=== PATIENT | female | born 1985 | race Caucasian/White ===

== ENCOUNTER 2017-03-26 18:09 | Emergency (ER) | payer SELFPAY ==
[2017-03-26 18:33] VITALS: BP 123/75
== END 2017-03-26 18:47 | disposition left against medical advice (07) ==
LOC: UCEAST 18:09
DX: H92.09 Otalgia, unspecified ear (principal); Z53.21 Procedure and treatment not carried out due to patient leaving prior to being seen by health care provider

== ENCOUNTER 2017-03-27 16:45 | Emergency (ER) | payer OTHER ==
[2017-03-27 17:16] VITALS: BP 120/62
--- NOTE | 2017-03-27 17:25 | UC ---
Ear Complaint HPI - HPI Summary HPI Summary: Pt presents with daughter. She tells me that for the past 3 days she has had R> L ear pain along with sinus congestion/pain/pressure. She has not tried anything OTC. Admits that she does have a lot of "earwax build up" and uses q tips often. She denies fever, chills, cough, ST, SOB, chest pain, abdominal pain , N/V/D/C - History of Current Complaint Chief Complaint: UCEar Stated Complaint: EAR PAIN Time Seen by Provider: 03/27/17 17:21 Hx Obtained From: Patient Hx Last Menstrual Period: 03/27/17 ?: No Onset/Duration: Gradual Onset Severity Initially: Mild Severity Currently: Moderate Pain Intensity: 5 Pain Scale Used: 0-10 Numeric - Allergies/Home Medications Allergies/Adverse Reactions: Allergies Allergy/AdvReac Type Severity Reaction Status Date / Time No Known Allergies Allergy Verified 03/27/17 17:16 PMH/Surg Hx/FS Hx/Imm Hx Previously Healthy: Yes - Surgical History Surgical History: Yes Surgery Procedure, Year, and Place: ESSURE PLACEMENT PLACEMENT-08/22/2010. D&C X 2-MISCARRIAGES- - BLOOD TRANSFUSIONS WITH D&C. Sep 25 2012 gallstone surgery. GALL BLADDER REMOVAL - Social History Alcohol Use: Rare Substance Use Type: None Smoking Status (MU): Former Smoker When Did the Patient Quit Smoking/Using Tobacco: June 2014 - Immunization History Most Recent Influenza Vaccination: none Most Recent Tetanus Shot: > 10 years Review of Systems Constitutional: Negative Skin: Negative Eyes: Negative ENT: Ear Ache Respiratory: Negative Cardiovascular: Negative Gastrointestinal: Negative All Other Systems Reviewed And Are Negative: Yes Physical Exam Triage Information Reviewed: Yes Appearance: Well-Appearing, Well-Nourished Vital Signs: Initial Vital Signs Temp 98.0 F 03/27/17 17:13 Pulse 87 03/27/17 17:13 Resp 16 03/27/17 17:13 BP 120/62 03/27/17 17:13 Pulse Ox 100 03/27/17 17:13 Vital Signs Reviewed: Yes Eyes: Positive: Conjunctiva Clear. Negative: Conjunctiva Inflamed, Discharge ENT: Positive: Hearing grossly normal, Pharynx normal, Nasal congestion, Nasal drainage, Sinus tenderness, Uvula midline, Other - B/L cerumen impaction. No visualization of the TMs. After cerumen disimpaction: TMs normal without bulging , dullness, or erythema.. Negative: Pharyngeal erythema, Tonsillar swelling, Tonsillar exudate Neck: Positive: Supple, Nontender, No Lymphadenopathy Respiratory: Positive: Chest non-tender, Lungs clear, Normal breath sounds, No respiratory distress, No accessory muscle use Cardiovascular: Positive: RRR, No Murmur, Pulses Normal Neurological: Positive: Alert Psychological: Positive: Age Appropriate Behavior Skin: Negative: rashes Ear Complaint Course/Dx - Course Course Of Treatment: sinusitis. B/l cerumen impaction. Cerumen irrigation today with great results. Pt's ear pain felt better. TMs visualized and normal. Rx for amoxicillin for sinusitis. - Differential Dx/Diagnosis Differential Diagnosis/HQI/PQRI: Cerumen Impaction, Mastoiditis, Otitis Externa , Otitis Media, Perforated TM, URI Provider Diagnoses: Cerumen impaction. Sinusitis Discharge - Discharge Plan Condition: Stable Disposition: HOME Prescriptions: Amoxicillin PO (*) [Amoxicillin 500 MG CAP*] 500 mg PO Q12H #14 cap Patient Education Materials: Sinusitis (ED) Referrals: Paige Stanton MD [Primary Care Provider] - Additional Instructions: If you develop a fever, SOB, chest pain, new or worsening symptoms - please call your PCP or go to the ED.
== END 2017-03-27 18:02 | disposition home or self-care (01) ==
LOC: UCEAST 16:45
DX: H61.23 Impacted cerumen, bilateral (principal); J32.9 Chronic sinusitis, unspecified; Z90.49 Acquired absence of other specified parts of digestive tract; Z87.891 Personal history of nicotine dependence
CPT/HCPCS: 99213; G0463

== ENCOUNTER 2018-01-11 14:29 | Emergency (ER) | payer OTHER ==
[2018-01-11 14:40] VITALS: BP 122/85
--- NOTE | 2018-01-11 15:07 | UC ---
Back Pain HPI - HPI Summary HPI Summary: 32 y/o female presents to the urgent care c/o lower back pain for the past 3 days. Pt reports pain is sharp w/ movement 6/10, radiating to the Rt hip and Rt knee at times. Pt denies any injury or Hx of back pain, Pt has taken Tylenol PO to alleviate symptoms w/o any improvement. Last dose taking around 1000AM today. Pt denies saddle anesthesia, urinary or fecal incontinence, urinary symptoms, fever, numbness or tingling over the lower legs, SOB, calf pain, chest pain, abdominal pain, N/V/D. LMP: 12/11/2017 - History of Current Complaint Chief Complaint: UCBackPain Stated Complaint: BACK PAIN Time Seen by Provider: 01/11/18 15:06 Hx Obtained From: Patient Hx Last Menstrual Period: one month ago ?: No Onset/Duration: Gradual Onset, Lasting Days - 3 days, Still Present, Worse Since - today Timing: Intermittent Severity Initially: Mild Severity Currently: Moderate Pain Intensity: 6 Pain Scale Used: 0-10 Numeric Back Pain: Is Discrete @ - lower back, Radiates To - hip and Rt knee Character: Sharp Aggravating Factor(s): Movement, Lifting, Bending Alleviating Factor(s): Rest Associated Signs And Symptoms: Positive: Negative. Negative: Fever, Numbness, Tingling, Abdominal Pain, Flank Pain, Bladder Incontinence, Bowel Incontinence, Weight Loss, Pain with Weight Bearing - Risk Factors AAA Risk Factors: Negative TAD Risk Factors: Negative Cauda Equina Risk Factors: Negative Epidural Abscess Risk Factors: Negative - Allergies/Home Medications Allergies/Adverse Reactions: Allergies Allergy/AdvReac Type Severity Reaction Status Date / Time No Known Allergies Allergy Verified 01/11/18 14:40 PMH/Surg Hx/FS Hx/Imm Hx Previously Healthy: Yes Respiratory History: Asthma - controlled - Surgical History Surgical History: Yes Surgery Procedure, Year, and Place: ESSURE PLACEMENT PLACEMENT-08/22/2010. D&C X 2-MISCARRIAGES- - BLOOD TRANSFUSIONS WITH D&C. Sep 25 2012 gallstone surgery. GALL BLADDER REMOVAL - Family History Known Family History: Positive: None - Pt deneis PMHX - Social History Occupation: Employed Full-time Lives: With Family Alcohol Use: Rare Substance Use Type: None Smoking Status (MU): Former Smoker When Did the Patient Quit Smoking/Using Tobacco: June 2014 - Immunization History Most Recent Influenza Vaccination: none Most Recent Tetanus Shot: > 10 years Review of Systems Constitutional: Negative Skin: Negative Eyes: Negative ENT: Negative Respiratory: Negative Cardiovascular: Negative Gastrointestinal: Negative Genitourinary: Negative Motor: Negative Neurovascular: Negative Musculoskeletal: Decreased ROM - lower back, Other: - lower back pain radiating to the Rt hip and Rt knee Neurological: Negative Psychological: Negative Is Patient Immunocompromised?: No All Other Systems Reviewed And Are Negative: Yes Physical Exam - Summary Physical Exam Summary: Vital Signs Reviewed: Yes Appearance: Well-Appearing, Well-Nourished, obese female sitting in the examining table w/o any apparent distress. Eyes: Positive: Conjunctiva Clear - PERRLA, EOMI. ENT: Positive: Normal ENT inspection, Hearing grossly normal, Pharynx normal, TMs normal, Uvula midline Neck: Positive: Supple, Nontender, No Lymphadenopathy Respiratory: Positive: Chest non-tender, Lungs clear, Normal breath sounds, No respiratory distress Cardiovascular: Positive: RRR, No Murmur, Pulses Normal, Brisk Capillary Refill Abdomen Description: Positive: Nontender, No Organomegaly, Soft. Negative: CVA Tenderness (R), CVA Tenderness (L) Bowel Sounds: Positive: Present Musculoskeletal: Positive: Strength Intact, BACK: Patient walked into the urgent care room with symmetric ambulation, No signs of limping, antalgic, able to bear weight. No signs of trauma, No masses palpated. Point tenderness at the level of L5-S1, No CVAT, no flank ecchymosis . No sacroiliac notch tenderness, No saddle anesthesia.ROM: limited due to pain, Straight Leg Raise: negative. Patellar reflexes: brisk, symmetric Muscle strength lower extremities. Dorsiflexion/ plantar flexion of ankles. Heel/ toe walk. Lower extremities: Femoral, popliteal, posterior tibial, and dorsalis pedis pulses WNL. Pt refuse rectal exam Neurological: Positive: Alert, Muscle Tone Normal Psychological Exam: Normal Skin Exam: Normal Triage Information Reviewed: Yes Vital Signs: Initial Vital Signs Temp 98.9 F 01/11/18 14:38 Pulse 87 01/11/18 14:38 Resp 12 01/11/18 14:38 BP 122/85 01/11/18 14:38 Pulse Ox 99 01/11/18 14:38 Back Pain Course/Dx - Course Course Of Treatment: 32 y/o female presents to the urgent care c/o lower back pain for the past 3 days. Pt reports pain is sharp w/ movement 6/10, radiating to the Rt hip and Rt knee at times. Pt denies any injury or Hx of back pain, Pt has taken Tylenol PO to alleviate symptoms w/o any improvement. Last dose taking around 1000AM today. Pt denies saddle anesthesia, urinary or fecal incontinence, urinary symptoms, fever, numbness or tingling over the lower legs , SOB, calf pain, chest pain, abdominal pain, N/V/D. LMP: 12/11/2017. Hx obtained. PE: Point tenderness at the level of the L5-S1 and left paraspinal muscle spasm at the same level on examination. test ordered: negative. UA: 3+ blood, 1+ leukoesteraces,+protein. Urine culture sent to lab to r/o any abdnormality. Pt will be notified. Lumbosacral X-ray ordered, Impression: No acute osseous injury observed. Pt decline medication fo pain at the clinic. Pt Rx Ibuprofen PO, flexeril PO and Bactrim PO as directed below. Patient was instructed to the f/u [facility] orthopedic from [facility] in 1 week if symptoms do not improve or worsen. Patient understands and agrees. Patient is able to ambulate freely w/o aid or limp. Plan of care was discussed with the patient and patient understands and agrees. All questions were answered at patient satisfaction. Pt left clinic hemodynamically stable. - Differential Dx/Diagnosis Differential Diagnosis/HQI/PQRI: Fracture, Herniated Disc, Renal Colic, Strain, Sprain, Other - UTI Provider Diagnoses: 1- Acute lower strain. 2- UTI. 3- Muscle spasm Discharge - Sign-Out/Discharge Documenting (check all that apply): Patient Departure - D/C home All imaging exams completed and their final reports reviewed: Yes - Discharge Plan Condition: Stable Disposition: HOME Prescriptions: Cyclobenzaprine TAB* [Flexeril 10 MG TAB*] 10 mg PO TID PRN #21 tab PRN Reason: Spasms - Back Ibuprofen TAB* [Motrin TAB* 800 MG] 800 mg PO Q6H PRN #30 tab PRN Reason: Pain Sulfamethox/Trimethoprim DS* [Bactrim DS 800/160 TAB*] 1 tab PO BID #6 tab Patient Education Materials: Urinary Tract Infection in Women (ED), Low Back Strain (ED) Referrals: Paige Stanton MD [Primary Care Provider] - 3 Days [facility] [Provider Group] - 1 Week Additional Instructions: 1- Please take Ibuprofen PO as directed after meals for pain. 2- Take Flexeril PO as directed for muscle spasm. Please do not drive while taking the medication. 3- Wear a back support. Avoid strenuous exercise of heavy lifting. 4- Take Bactrim PO as directed to alleviate UTI. Increase increase fluid intake. drink cranberry juice. 5-Urine sent for culture if any abnormality, you will be notified for further treatment. 6- Please follow up with Orthopedic Dr from [facility] or your PCP in 1 week if not improvement of symptoms, for further management. - Billing Disposition and Condition Condition: STABLE Disposition: Home
--- NOTE | 2018-01-11 16:19 | RAD ---
INDICATION: Low back pain. COMPARISON: There are no relevant prior studies available for comparison. TECHNIQUE: 5 views of the lumbar spine were obtained including lateral, oblique, AP and a coned-down lateral view of the lumbar sacral junction. FINDINGS: The vertebra are in normal alignment. No fracture is seen. Disc spaces appear maintained. IMPRESSION: NEGATIVE EXAM.
--- NOTE | 2018-01-13 19:43 | UC ---
- Progress Note Progress Note: + E. Coli pt on Bactrim await sensitivity no change wallace 01/13/18 Discharge - Sign-Out/Discharge Documenting (check all that apply): Post-Discharge Follow Up All imaging exams completed and their final reports reviewed: Yes - Discharge Plan Condition: Stable Disposition: HOME Prescriptions: Cyclobenzaprine TAB* [Flexeril 10 MG TAB*] 10 mg PO TID PRN #21 tab PRN Reason: Spasms - Back Ibuprofen TAB* [Motrin TAB* 800 MG] 800 mg PO Q6H PRN #30 tab PRN Reason: Pain Sulfamethox/Trimethoprim DS* [Bactrim DS 800/160 TAB*] 1 tab PO BID #6 tab Patient Education Materials: Urinary Tract Infection in Women (ED), Low Back Strain (ED) Referrals: [facility] [Provider Group] - 1 Week Paige Stanton MD [Primary Care Provider] - 3 Days Additional Instructions: 1- Please take Ibuprofen PO as directed after meals for pain. 2- Take Flexeril PO as directed for muscle spasm. Please do not drive while taking the medication. 3- Wear a back support. Avoid strenuous exercise of heavy lifting. 4- Take Bactrim PO as directed to alleviate UTI. Increase increase fluid intake. drink cranberry juice. 5-Urine sent for culture if any abnormality, you will be notified for further treatment. 6- Please follow up with Orthopedic Dr from [facility] or your PCP in 1 week if not improvement of symptoms, for further management. - Billing Disposition and Condition Condition: STABLE Disposition: Home
== END 2018-01-11 16:35 | disposition home or self-care (01) ==
LOC: UCEAST 14:29
DX: S39.012A Strain of muscle, fascia and tendon of lower back, initial encounter (principal); X58.XXXA Exposure to other specified factors, initial encounter; Y93.9 Activity, unspecified; Y92.9 Unspecified place or not applicable; M62.830 Muscle spasm of back; N39.0 Urinary tract infection, site not specified; B96.20 Unspecified Escherichia coli [E. coli] as the cause of diseases classified elsewhere; Z32.02 Encounter for pregnancy test, result negative; Z87.891 Personal history of nicotine dependence
CPT/HCPCS: 72110; 81003; 84702; 87077; 87086; 87186; 99212; G0463

== ENCOUNTER 2018-01-24 19:15 | Emergency (ER) | payer OTHER ==
[2018-01-24 19:55] VITALS: BP 148/97
[2018-01-24] MEDS ORDERED: Cephalexin CAP* 500 MG PO ONE (20:14)
--- NOTE | 2018-01-24 20:15 | UC ---
Complaint Female HPI - HPI Summary HPI Summary: The patient is a 32-year-old female with a 2 day history of dysuria urgency and frequency. Seen about 2 weeks ago she had a 3 day course of Septra double strength. She did not feel completely better at the end of her 3 day course of antibiotics. She has had no fever or chills. Denies any vaginal discharge or itch. He has no nausea vomiting or diarrhea. She is just finishing her period. - History Of Current Complaint Chief Complaint: UCGU Stated Complaint: BURNING URINATION Time Seen by Provider: 01/24/18 20:03 Hx Obtained From: Patient Hx Last Menstrual Period: 01/17/18 Onset/Duration: Gradual Onset, Lasting Days Timing: Constant Severity Initially: Mild Severity Currently: Mild Pain Intensity: 4 Pain Scale Used: 0-10 Numeric Character: Burning Aggravating Factor(s): Urination - Allergies/Home Medications Allergies/Adverse Reactions: Allergies Allergy/AdvReac Type Severity Reaction Status Date / Time No Known Allergies Allergy Verified 01/24/18 19:55 PMH/Surg Hx/FS Hx/Imm Hx Previously Healthy: Yes - Surgical History Surgical History: Yes Surgery Procedure, Year, and Place: ESSURE PLACEMENT PLACEMENT-08/22/2010. D&C X 2-MISCARRIAGES- - BLOOD TRANSFUSIONS WITH D&C. Sep 25 2012 gallstone surgery. GALL BLADDER REMOVAL - Family History Known Family History: Positive: Hypertension - Social History Alcohol Use: Rare Substance Use Type: None Smoking Status (MU): Former Smoker When Did the Patient Quit Smoking/Using Tobacco: June 2014 - Immunization History Most Recent Influenza Vaccination: none Most Recent Tetanus Shot: > 10 years Review of Systems Constitutional: Negative Skin: Negative Eyes: Negative ENT: Negative Respiratory: Negative Cardiovascular: Negative Gastrointestinal: Negative Genitourinary: Dysuria, Frequency, Urgency Motor: Negative Neurovascular: Negative Musculoskeletal: Negative Neurological: Negative Psychological: Negative Is Patient Immunocompromised?: No All Other Systems Reviewed And Are Negative: Yes Physical Exam Triage Information Reviewed: Yes Appearance: Well-Appearing, No Pain Distress, Well-Nourished Vital Signs: Initial Vital Signs Temp 98.6 F 01/24/18 19:53 Pulse 96 01/24/18 19:53 Resp 18 01/24/18 19:53 BP 148/97 01/24/18 19:53 Pulse Ox 98 09/28/18 19:53 Eyes: Positive: Conjunctiva Clear ENT: Positive: Hearing grossly normal. Negative: Nasal congestion, Nasal drainage, Trismus, Muffled voice, Hoarse voice Neck: Positive: Nontender, No Lymphadenopathy Respiratory: Positive: Lungs clear, Normal breath sounds, No respiratory distress, No accessory muscle use Cardiovascular: Positive: RRR, No Murmur Musculoskeletal: Positive: ROM Intact, No Edema Neurological: Positive: Alert Psychological Exam: Normal Skin Exam: Normal Diagnostics - Laboratory Diagnostic Studies Completed/Ordered: UA trace leuks, + RBC Complaint Female Dx - Differential Dx/Diagnosis Provider Diagnoses: dysuria. possible UTI Discharge - Sign-Out/Discharge Documenting (check all that apply): Patient Departure All imaging exams completed and their final reports reviewed: No Studies - Discharge Plan Condition: Stable Disposition: HOME Patient Education Materials: Dysuria (ED) Referrals: Paige Stanton MD [Primary Care Provider] - 3 Days (if not better) Additional Instructions: a urine culture is pending recheck for new or worsening symptoms - Billing Disposition and Condition Condition: STABLE Disposition: Home
== END 2018-01-24 20:45 | disposition home or self-care (01) ==
LOC: UCEAST 19:15
DX: R30.0 Dysuria (principal); Z87.891 Personal history of nicotine dependence
CPT/HCPCS: 81003; 87086; 99212; A9270-GY; G0463

== ENCOUNTER 2018-01-27 13:37 | Emergency (ER) | payer OTHER ==
--- NOTE | 2018-01-27 15:17 | UC ---
Complaint Female HPI - HPI Summary HPI Summary: 32 y/o female presents to the urgent care pt was here on saturday for uti symptoms. pt was given an abx for a longer period of time. pt states she had a uti prior to that uti and currently the pain is more and feels as though her uti is worse. pt states she is having difficulty standing d/t lower back pain and her back is locking. - History Of Current Complaint Chief Complaint: UCGU Stated Complaint: BACK PAIN, AND FREQUENT URINATION Time Seen by Provider: 01/27/18 15:14 Hx Obtained From: Patient Hx Last Menstrual Period: 01/16/18 Onset/Duration: Gradual Onset Pain Intensity: 6 - Allergies/Home Medications Allergies/Adverse Reactions: Allergies Allergy/AdvReac Type Severity Reaction Status Date / Time No Known Allergies Allergy Verified 01/27/18 14:14 Home Medications: Home Medications Acetaminophen [Acetaminophen Extra Strength] 1,000 mg PO 01/27/18 [History] PMH/Surg Hx/FS Hx/Imm Hx - Surgical History Surgical History: Yes Surgery Procedure, Year, and Place: ESSURE PLACEMENT PLACEMENT-08/22/2010. D&C X 2-MISCARRIAGES- - BLOOD TRANSFUSIONS WITH D&C. Sep 25 2012 gallstone surgery. GALL BLADDER REMOVAL - Family History Known Family History: Positive: None - Pt deneis PMHX, Hypertension - Social History Alcohol Use: Occasionally Substance Use Type: None Smoking Status (MU): Former Smoker When Did the Patient Quit Smoking/Using Tobacco: June 2014 - Immunization History Most Recent Influenza Vaccination: none Most Recent Tetanus Shot: > 10 years Physical Exam Vital Signs: Initial Vital Signs Temp 98.5 F 01/27/18 14:09 Pulse 85 01/27/18 14:09 Resp 18 01/27/18 14:09 BP 130/82 01/27/18 14:09 Pulse Ox 99 01/27/18 14:09 Complaint Female Dx - Differential Dx/Diagnosis Differential Diagnosis/HQI/PQRI: Ovarian Cyst, Ovarian Torsion, Pelvic Inflammatory Disease, Renal Colic, Urinary Tract Infection Provider Diagnoses: 1- Acute lower back pain. 2- Muscle spasm. 3- Dysuria Discharge - Sign-Out/Discharge Documenting (check all that apply): Patient Departure - D/C home All imaging exams completed and their final reports reviewed: No Studies - Discharge Plan Condition: Stable Disposition: HOME-RECOMMEND TO ED Prescriptions: Methocarbamol TAB* [Robaxin 500 MG TAB*] 750 mg PO TID PRN #12 tab PRN Reason: Spasms - Muscle Phenazopyridine TAB* [Pyridium 100 mg TAB*] 100 mg PO TID #6 tab Patient Education Materials: Low Back Strain (ED), Dysuria (ED), Muscle Spasm ( ED) Referrals: Paige Stanton MD [Primary Care Provider] - 2 Days Yassine Novak MD [Medical Doctor] - 1 Week Additional Instructions: 1- Please continue taking Ibuprofen PO or Tylenol PO as directed after meals for pain. 2- Take Robaxin PO as directed for muscle spasm. Please do not drive while taking the medication. 3- Wear a back support. Avoid strenuous exercise of heavy lifting. 4- Since you declined Pelvic exam and at this moment we don't have ultrasound to r/o ovarian cyst, I hihgly recommend you to go to the ER for further management since you have Hx of ovarian cyst in the past. 4- Please follow up with Orthopedic Dr Novak or your PCP in 1 week if not improvement of symptoms, for further management. - Billing Disposition and Condition Condition: STABLE Disposition: Home-Recommend to ED
[2018-01-27 16:12] VITALS: BP 128/74
== END 2018-01-27 16:13 | disposition home health service (06) ==
LOC: UCEAST 13:37
DX: M54.5 Low back pain (principal); M62.830 Muscle spasm of back; R30.0 Dysuria; Z87.440 Personal history of urinary (tract) infections; Z87.891 Personal history of nicotine dependence
CPT/HCPCS: 81003; 84702; 87086; 99212; G0463

== ENCOUNTER 2018-06-22 14:39 | Emergency (ER) | payer OTHER ==
[2018-06-22 14:55] VITALS: BP 129/75
--- NOTE | 2018-06-22 15:03 | UC ---
FLU HPI - HPI Summary HPI Summary: started 2 days ago with cough, fever, chills. thought she had a cold, but worse today. OTC cold meds not helping did not get flu vacc [id number] - History of Current Complaint Chief Complaint: UCRespiratory Stated Complaint: COUGH,CHILLS Time Seen by Provider: 06/22/18 15:00 Hx Obtained From: Patient Hx Last Menstrual Period: 06/17/2018 ?: No Onset/Duration: Sudden Onset - 2 days ago Severity Currently: Moderate Pain Intensity: 4 Associated Signs & Symptoms: Positive: Fever, Cough Related Hx: Possible Flu/Infectious Exposure - Allergy/Home Medications Allergies/Adverse Reactions: Allergies Allergy/AdvReac Type Severity Reaction Status Date / Time No Known Allergies Allergy Verified 04/25/18 12:58 PMH/Surg Hx/FS Hx/Imm Hx Previously Healthy: Yes - Surgical History Surgical History: Yes Surgery Procedure, Year, and Place: ESSURE PLACEMENT PLACEMENT-08/22/2010. D&C X 2-MISCARRIAGES- - BLOOD TRANSFUSIONS WITH D&C. Sep 25 2012 gallstone surgery. GALL BLADDER REMOVAL - Family History Known Family History: Positive: None - Pt deneis PMHX, Hypertension, Diabetes - Social History Occupation: Employed Full-time - [employer] Lives: With Family Alcohol Use: Occasionally Substance Use Type: None Smoking Status (MU): Former Smoker When Did the Patient Quit Smoking/Using Tobacco: June 2014 - Immunization History Most Recent Influenza Vaccination: none Most Recent Tetanus Shot: > 10 years Review of Systems All Other Systems Reviewed And Are Negative: Yes Constitutional: Positive: Fever, Chills, Fatigue Skin: Positive: Negative Respiratory: Positive: Cough Cardiovascular: Positive: Negative Musculoskeletal: Positive: Negative Neurological: Positive: Negative Psychological: Positive: Negative Is Patient Immunocompromised?: No Physical Exam Triage Information Reviewed: Yes Appearance: No Pain Distress, Ill-Appearing - curled on table wearing coat, Obese Vital Signs: Initial Vital Signs Temp 99.9 F 06/22/18 14:50 Pulse 90 06/22/18 14:50 Resp 18 06/22/18 14:50 BP 129/75 06/22/18 14:50 Pulse Ox 100 06/22/18 14:50 Vital Signs Reviewed: Yes Eyes: Positive: Conjunctiva Clear ENT: Positive: Pharynx normal, Nasal congestion Neck: Positive: Nontender Respiratory: Positive: Lungs clear Cardiovascular Exam: Normal Cardiovascular: Positive: RRR Musculoskeletal Exam: Normal Neurological Exam: Normal Psychological Exam: Normal Skin Exam: Normal Flu Course/Dx - Differential Dx/Diagnosis Differential Diagnosis/HQI/PQRI: Influenza, Upper Respiratory Infection Provider Diagnosis: Influenza A Discharge - Sign-Out/Discharge Documenting (check all that apply): Patient Departure All imaging exams completed and their final reports reviewed: No Studies - Discharge Plan Condition: Stable Disposition: HOME Prescriptions: Oseltamivir CAP* [Tamiflu CAP*] 75 mg PO BID #10 cap Patient Education Materials: Influenza (ED) Forms: *Work Release Referrals: Paige Stanton MD [Primary Care Provider] - 3 Days (if no better) Additional Instructions: drink plenty of fluids and rest start Tamiflu today no work for 48hours use over the counter flu symptom relief medication as directed - Billing Disposition and Condition Condition: STABLE Disposition: Home
[2018-06-22 15:13] LABS: Influenza A Molecular POSITIVE (Negative)
== END 2018-06-22 15:35 | disposition home or self-care (01) ==
LOC: UCEAST 14:39
DX: J10.1 Influenza due to other identified influenza virus with other respiratory manifestations (principal); Z87.891 Personal history of nicotine dependence
CPT/HCPCS: 99212; G0463

== ENCOUNTER 2019-04-06 17:49 | Emergency (ER) | payer SELFPAY ==
[2019-04-06 18:05] VITALS: BP 130/81
--- NOTE | 2019-04-06 18:42 | UC ---
Hand/Wrist HPI - HPI Summary HPI Summary: 33-year-old woman comes in with right hand and wrist pain. It's been going on for several weeks. Pain is worse with activity. Pain primarily is in the right palm but also into the right first second and third fingers. No known specific trauma. Patient reports that certain movements make the pain worse. No complaint of any weakness. - History Of Current Complaint Chief Complaint: UCUpperExtremity Stated Complaint: HAND PAIN Time Seen by Provider: 04/06/19 18:26 Hx Last Menstrual Period: two weeks ago Pain Intensity: 8 - Allergies/Home Medications Allergies/Adverse Reactions: Allergies Allergy/AdvReac Type Severity Reaction Status Date / Time No Known Allergies Allergy Verified 04/06/19 18:05 Home Medications: Home Medications NK [No Home Medications Reported] 04/06/19 [History Confirmed 04/06/19] PMH/Surg Hx/FS Hx/Imm Hx Previously Healthy: Yes - Surgical History Surgical History: Yes Surgery Procedure, Year, and Place: ESSURE PLACEMENT PLACEMENT-08/22/2010. D&C X 2-MISCARRIAGES- - BLOOD TRANSFUSIONS WITH D&C. Sep 25 2012 gallstone surgery. GALL BLADDER REMOVAL - Family History Known Family History: Positive: None - Pt deneis PMHX, Hypertension, Diabetes - Social History Alcohol Use: Occasionally Substance Use Type: None Smoking Status (MU): Former Smoker When Did the Patient Quit Smoking/Using Tobacco: June 2014 Household Exposure Type: Cigarettes - Immunization History Most Recent Influenza Vaccination: none Most Recent Tetanus Shot: > 10 years Review of Systems All Other Systems Reviewed And Are Negative: Yes Constitutional: Positive: Negative Skin: Positive: Negative Eyes: Positive: Negative ENT: Positive: Negative Respiratory: Positive: Negative Cardiovascular: Positive: Negative Gastrointestinal: Positive: Negative Motor: Positive: Other - SEE HPI Neurovascular: Positive: Negative Musculoskeletal: Positive: Other: - SEE HPI Neurological: Positive: Negative Psychological: Positive: Negative Is Patient Immunocompromised?: No Physical Exam Triage Information Reviewed: Yes Appearance: Well-Appearing, No Pain Distress, Well-Nourished Vital Signs: Initial Vital Signs Temp 99.1 F 04/06/19 18:00 Pulse 81 04/06/19 18:00 Resp 18 04/06/19 18:00 BP 130/81 04/06/19 18:00 Pulse Ox 98 12/09/19 18:00 Vital Signs Reviewed: Yes Eye Exam: Normal Eyes: Positive: Conjunctiva Clear Neck: Positive: Supple Respiratory: Positive: No respiratory distress Musculoskeletal: Positive: Strength Intact, ROM Intact, Other: - Right elbow wrist and hand and fingers all have full range of motion full-strength. Positive Tinel's on the right side. Normal capillary refill normal sensation normal radial pulse. Neurological: Positive: Alert Psychological: Positive: Age Appropriate Behavior Skin Exam: Normal Hand/Wrist Course/Dx - Course Course Of Treatment: Examination is consistent with a right carpal tunnel symptoms. Patient continues eyes anti-inflammatories. Patient was placed in a cock-up splint by nursing patient Norvasc intact after placement of cock-up splint. If not completely improved will follow-up with sports medicine. - Differential Dx/Diagnosis Provider Diagnosis: Right hand pain, Right wrist pain, Right carpal tunnel syndrome Discharge ED - Sign-Out/Discharge Documenting (check all that apply): Patient Departure All imaging exams completed and their final reports reviewed: Yes - Discharge Plan Condition: Stable Disposition: HOME Patient Education Materials: Wrist Sprain (ED) Referrals: Paige Stanton MD [Primary Care Provider] - [facility] [Provider Group] Additional Instructions: FOLLOW UP WITH SPORTS MEDICINE IF YOUR RIGHT HAND AND WRIST PAIN WITH CARPAL TUNNEL SYMPTOMS IS NOT COMPLETELY IMPROVED. GET REEVALUATED SOONER IF NOT IMPROVED OR WORSE OR ANY QUESTIONS OR CONCERNS. - Billing Disposition and Condition Condition: STABLE Disposition: Home
== END 2019-04-06 19:06 | disposition home or self-care (01) ==
LOC: UCEAST 17:49
DX: G56.01 Carpal tunnel syndrome, right upper limb (principal); M79.641 Pain in right hand; M25.531 Pain in right wrist; Z87.891 Personal history of nicotine dependence
CPT/HCPCS: 99202; G0463

== ENCOUNTER 2019-05-19 13:56 | Emergency (ER) | payer SELFPAY ==
[2019-05-19 14:49] VITALS: BP 126/80
--- NOTE | 2019-05-19 15:40 | UC ---
Throat Pain/Nasal Esvin HPI - HPI Summary HPI Summary: The patient is a 33-year-old female with the onset of sore throat yesterday. Today she has bilateral otalgia. She feels fatigued. She denies any fever or chills. She denies any myalgias. She has a mild headache. She has no nausea vomiting or diarrhea. She has no chest pain or shortness of breath. - History of Current Complaint Chief Complaint: UCGeneralIllness Stated Complaint: THROAT AND EAR PAIN Time Seen by Provider: 05/19/19 15:33 Hx Obtained From: Patient Hx Last Menstrual Period: 05/13/2019 Onset/Duration: Gradual Onset Severity: Mild Pain Intensity: 4 Pain Scale Used: 0-10 Numeric Cough: Nonproductive Associated Signs & Symptoms: Positive: Negative - Epiglottits Risk Factors Epiglottis Risk Factors: Negative - Allergies/Home Medications Allergies/Adverse Reactions: Allergies Allergy/AdvReac Type Severity Reaction Status Date / Time No Known Allergies Allergy Verified 05/19/19 14:49 PMH/Surg Hx/FS Hx/Imm Hx Previously Healthy: Yes - Surgical History Surgical History: Yes Surgery Procedure, Year, and Place: ESSURE PLACEMENT PLACEMENT-08/22/2010. D&C X 2-MISCARRIAGES- - BLOOD TRANSFUSIONS WITH D&C. Sep 25 2012 gallstone surgery. GALL BLADDER REMOVAL - Family History Known Family History: Positive: Hypertension, Diabetes - Social History Alcohol Use: Occasionally Substance Use Type: None Smoking Status (MU): Former Smoker When Did the Patient Quit Smoking/Using Tobacco: June 2014 Household Exposure Type: Cigarettes - Immunization History Most Recent Influenza Vaccination: none Most Recent Tetanus Shot: > 10 years Review of Systems All Other Systems Reviewed And Are Negative: Yes Constitutional: Positive: Fatigue Skin: Positive: Negative Eyes: Positive: Negative ENT: Positive: Sore Throat, Ear Ache Respiratory: Positive: Negative Cardiovascular: Positive: Negative Gastrointestinal: Positive: Negative Genitourinary: Positive: Negative Motor: Positive: Negative Neurovascular: Positive: Negative Musculoskeletal: Positive: Negative Neurological: Positive: Negative Psychological: Positive: Negative Physical Exam Triage Information Reviewed: Yes Appearance: Well-Appearing, No Pain Distress, Well-Nourished Vital Signs: Initial Vital Signs Temp 98.9 F 05/19/19 14:46 Pulse 79 05/19/19 14:46 Resp 18 05/19/19 14:46 BP 126/80 05/19/19 14:46 Pulse Ox 99 05/19/19 14:46 Vital Signs Reviewed: Yes Eyes: Positive: Conjunctiva Clear ENT: Positive: Hearing grossly normal, Pharyngeal erythema, TMs normal, Uvula midline. Negative: Nasal congestion, Nasal drainage, Tonsillar swelling, Tonsillar exudate, Trismus, Muffled voice, Hoarse voice, Dental tenderness, Sinus tenderness Dental Exam: Normal Neck: Positive: Supple, Nontender, No Lymphadenopathy Respiratory: Positive: Lungs clear, Normal breath sounds, No respiratory distress, No accessory muscle use Cardiovascular: Positive: RRR, No Murmur Musculoskeletal: Positive: ROM Intact, No Edema Neurological: Positive: Alert Psychological Exam: Normal Skin Exam: Normal Diagnostics - Laboratory Lab Results: strep (-) Throat Pain/Nasal Course/Dx - Differential Dx/Diagnosis Provider Diagnosis: Pharyngitis Discharge ED - Sign-Out/Discharge Documenting (check all that apply): Patient Departure All imaging exams completed and their final reports reviewed: No Studies - Discharge Plan Condition: Stable Disposition: HOME Patient Education Materials: Pharyngitis (ED) Referrals: Paige Stanton MD [Primary Care Provider] - If Needed Additional Instructions: strep test negative recheck for new or worsening symptoms - Billing Disposition and Condition Condition: STABLE Disposition: Home
== END 2019-05-19 15:50 | disposition home or self-care (01) ==
LOC: UCEAST 13:56
DX: J02.9 Acute pharyngitis, unspecified (principal); H92.03 Otalgia, bilateral; R53.83 Other fatigue; Z87.891 Personal history of nicotine dependence
CPT/HCPCS: 87651; 99211; G0463